=== PATIENT | female | born 1995 | race Two or more races ===

== ENCOUNTER 2016-06-11 10:08 | Outpatient (CLI) | payer MEDICAID | END 2016-06-11 10:09 | disposition home or self-care (01) | DX: E11.9 Type 2 diabetes mellitus without complications (principal) ==

== ENCOUNTER 2016-09-18 11:25 | Outpatient (CLI) | payer MEDICAID | END 2016-09-18 11:26 | disposition home or self-care (01) | DX: E28.2 Polycystic ovarian syndrome (principal) ==

== ENCOUNTER 2016-12-01 07:03 | Day surgery (SDC) | payer MEDICAID ==
[2016-12-01] MEDS ORDERED: ceFAZolin 2 GM/50 ML 50 ML IV ONE (07:21)
[2016-12-01 07:53] LABS: HCG UR QUAL NEGATIVE
[2016-12-01] MEDS ORDERED: LACTATED RINGERS 1,000 ML IV ONE ×3 (08:29→12:20)
[2016-12-01] MEDS ORDERED: BUPIVACAINE 0.5% PF 30 ML VIAL SUBQ ONE ×2 (09:48→10:35)
[2016-12-01] MEDS ORDERED: ROCURONIUM 50 MG/5 ML VIAL IVP ONE (10:00)
[2016-12-01] MEDS ORDERED: ONDANSETRON 4 MG/2 ML VIAL IVP ONE (10:00)
[2016-12-01] MEDS ORDERED: PROPOFOL 200 MG/20 ML VIAL IVP ONE (10:00)
[2016-12-01] MEDS ORDERED: fentaNYL 100 MCG/2 ML VIAL IVP ONE (10:00)
[2016-12-01] MEDS ORDERED: LIDOCAINE-MPF 2% 5 ML VIAL IM ONE (10:00)
[2016-12-01] MEDS ORDERED: SUCCINYLCHOLINE 200 MG/10 ML VIAL IVP ONE (10:00)
[2016-12-01] MEDS ORDERED: DEXAMETHASONE 4 MG/ML VIAL IVP ONE (10:00)
[2016-12-01] MEDS ORDERED: MIDAZOLAM 2 MG/2 ML VIAL IVP ONE (10:00)
[2016-12-01] MEDS ORDERED: KETOROLAC 30 MG/ML VIAL IVP ONE (10:00)
[2016-12-01] MEDS ORDERED: fentaNYL 100 MCG/2 ML VIAL ONE (11:21)
--- NOTE | 2016-12-01 11:54 | OPERATIVE REPORT ---
DATE OF SURGERY: 12/01/2016 00:00:00 TIME: 1100 PREOPERATIVE DIAGNOSIS: Complex pilonidal cyst. POSTOPERATIVE DIAGNOSIS: Complex pilonidal cyst. NAME OF PROCEDURE: Pilonidal cystectomy with mobilization of flaps and multilayer closure. SURGEON: Rigoberto Bhatti MD ANESTHESIA: Dr. Valdez (general endotracheal) plus 30 mL of 0.5% Marcaine. FINDINGS: Multiple draining sinus tracts. COMPLICATIONS: None. ESTIMATED BLOOD LOSS: Less than 10 mL. FLUIDS: 1000 mL of crystalloid. SPECIMEN REMOVED: Pilonidal cyst. DETAILS OF THE PROCEDURE: After informed consent was obtained detailing the risks of infection, bleed ing with all of its risks including transfusion and , the patient was brought to the operative s uite and initially placed supine on the operating room table. The patient received preoperative antib iotics for prophylaxis against surgical infection. The patient had TEDs and Venodynes placed for prop hylaxis against deep venous thrombosis. The patient then had general anesthesia induced by Niko giang, Niko Valdez provided anesthesia care for the entirety of the case. The patient was then carefu lly placed in a prone modified jackknife position, taking care to pad all extremities to make sure th ere were no pressure points. The patient was then prepped and draped in the usual standard manner. At this point, a time-in was done that confirmed the patient's identity via 3 separate identifiers incl uding her date, name, and medical record number. In addition, we confirmed her medications and allergies. We confirmed that we had the personnel and equipment required to perform the procedure. Carmen ram was given the opportunity to mention any concerns, and no concerns were mentioned, and with th e consents of opinion of everyone in the room, the operation was allowed to proceed. Visual examination revealed multiple draining tracts, 3 large ones, that were coming from the midline , but going off midline. An elliptical incision was made biasing it to the patient's right-hand side to incorporate all the sinus tracts. Bovie electrocautery was used to excise all the sinus tracts all the way down to the coccyx. Great care was taken to ensure that I did not leave any of the sinus tra ct behind. The tissues were injected from deep to superficial using 0.5% Marcaine for long-term anest hetic control. Flaps were raised on either side of the coccyx using Bovie electrocautery to allow for multilayer flap closure. This was done first with the gluteus fascia. This was closed using 0 Vicryl sutures in interrupted fashion. Once this was adequately closed, the subcutaneous fat was also broug ht together as a flap and the tape holding her cheeks apart was cut, allowing for this to meet more i n the midline. Once this was completed, the third layer was a subcutaneous layer, which was closed al so using 0 Vicryl suture. At this point, the skin was closed using interrupted and alternating 3-0 ny franny simple sutures and 2-0 nylon mattress sutures. In this manner, the wound was closed with the leas t amount of tension that I could manage. A dressing was applied. The patient was placed on her back a nd extubated and taken to recovery room in good and stable condition having tolerated this procedure well. Please note that when the flaps were closed, due to the nature of the operation and the raising of the flaps, the midline with shifted off to the patient's right, which was my intent. JOB #: [id number] EXT JOB #:[id number]
[2016-12-01] MEDS ORDERED: ONDANSETRON 4 MG/2 ML VIAL ONE (12:18)
[2016-12-01] MEDS ORDERED: oxyCODONE 5 MG TABLET ONE (13:32)
[2016-12-01] MEDS ORDERED: METOCLOPRAMIDE 10 MG/2 ML VIAL ONE (13:38)
[2016-12-01 13:57] VITALS: BP 111/64
== END 2016-12-01 07:04 | disposition home or self-care (01) ==
LOC: SDS 07:03
PROVIDERS: ATTEND Surgery
PROC: 0JB90ZZ Excision of Buttock Subcutaneous Tissue and Fascia, Open Approach (ICD-10-PCS; principal; 2016-12-01 08:45)
DX: L05.91 Pilonidal cyst without abscess (principal); E11.9 Type 2 diabetes mellitus without complications; Z79.84 Long term (current) use of oral hypoglycemic drugs; Z79.4 Long term (current) use of insulin; E66.9 Obesity, unspecified; Z68.37 Body mass index [BMI] 37.0-37.9, adult
CPT/HCPCS: 11772; 81025; A9270; J0690; J7120

== ENCOUNTER 2017-04-23 09:53 | Outpatient (CLI) | payer MEDICAID ==
[2017-04-23 17:51] LABS: BASOPHILS # (AUTO) 0.1 10^3/uL (0.0-0.1); BASOPHILS % (AUTO) 0.8 %; EOSINOPHILS % (AUTO) 0.4 %; HGB - HEMOGLOBIN 12.3 g/dL (12.0-16.0); LYMPHOCYTES # (AUTO) 1.5 10^3/uL (1.5-3.5); LYMPHOCYTES % (AUTO) 22.4 %; MEAN CORPUSCULAR HEMOGLOBIN 26.8 pg (27.0-31.0); MEAN CORPUSCULAR HGB CONC 32.8 g/dL (32.0-36.0); MEAN CORPUSCULAR VOLUME 81.8 fL (81.0-99.0); MEAN PLATELET VOLUME 8.1 fL (7.9-10.8); MONOCYTES # (AUTO) 0.4 10^3/uL (0.0-1.0); MONOCYTES % (AUTO) 5.4 %; NEUTROPHILS # (AUTO) 4.8 10^3/uL (1.5-6.6); PLT - PLATELET COUNT 299 10^3/uL (130-450); RED BLOOD COUNT 4.58 10^6/uL (4.20-5.40); RED CELL DISTRIBUTION WIDTH 16.1 % (12.0-15.0); WHITE BLOOD COUNT 6.8 x10^3/uL (4.8-10.8)
[2017-04-23 18:19] LABS: % IRON SATURATION 9 % (20-50); CHOL/HDL RATIO 2.7 (<4.4); CHOLESTEROL 249 mg/dL; HDL CHOLESTEROL 93 mg/dL; IRON 43 ug/dL (28-170); LDL CHOLESTEROL,CALCULATED 137 mg/dL; LDL/HDL RATIO 1.5 (<4.4); TOTAL IRON BINDING CAPACITY 470 ug/dL (250-450); TRANSFERRIN 336 mg/dL (192-382); VLDL CHOLESTEROL 19 mg/dL
[2017-04-23 18:46] LABS: HB2 TOTAL 13.2 g/dL; HEMOGLOBIN A1C 0.73 g/dL; HEMOGLOBIN A1C % 7.2 % (4.6-6.2)
== END 2017-04-23 09:54 | disposition home or self-care (01) ==
LOC: LAB.F 09:53
PROVIDERS: ATTEND Nurse Practitioner Family
DX: E11.9 Type 2 diabetes mellitus without complications (principal); M79.606 Pain in leg, unspecified; E28.2 Polycystic ovarian syndrome
CPT/HCPCS: 36415; 80061; 81599; 82043; 83036; 83540; 83721; 84402; 84403; 84443; 84466; 85025

== ENCOUNTER 2017-05-30 23:07 | Emergency (ER) | payer MEDICAID ==
[2017-05-30 23:14] VITALS: BP 142/78
--- NOTE | 2017-05-30 23:18 | ED Physician Documentation ---
PD HPI HEENT FB - Chief complaint Chief Complaint: Heent - History obtained from History obtained from: Patient - History of Present Illness Timing - onset: How many minutes ago (30) Location: Right ear Similar symptoms before: Has not had sx before Recently seen: Not recently seen - Additional information Additional information: Patient is a 21 year old female presenting to the emergency department after getting a q-tip stuck in her ear. Patient states she was worried that it would mess with her equilibrium and that she would get headaches so she came to the emergency department. Review of Systems Constitutional: reports: Reviewed and negative Eyes: reports: Reviewed and negative Ears: reports: Foreign body Nose: reports: Reviewed and negative Throat: reports: Reviewed and negative Cardiac: reports: Reviewed and negative Skin: denies: Rash, Lesions Neurologic: denies: Headache, LOC PD PAST MEDICAL HISTORY - Past Medical History Cardiovascular: None Respiratory: None Endocrine/Autoimmune: Type 2 diabetes GI: GERD, Chronic constipation : Nocturia, Frequency HEENT: None Psych: Depression, Anxiety, Panic attacks Musculoskeletal: None Derm: Other - Past Surgical History Past Surgical History: No - Present Medications Home Medications: Ambulatory Orders Medication Instructions Recorded Confirmed Insulin Glargine [Lantus] 24 unit SUBQ QPM 01/11/13 04/27/17 Insulin Lispro [Humalog] 35 unit SQ TIDWM 01/11/13 04/27/17 Ibuprofen [Advil] 600 mg PO DAILY 11/19/16 04/27/17 Norelgestromin/Ethin.estradiol 1 patch TOP ONCE 11/19/16 04/27/17 [Xulane Patch] Control Pills 1 tab PO DAILY 04/27/17 - Allergies Allergies/Adverse Reactions: Allergies Allergy/AdvReac Type Severity Reaction Status Date / Time trospium Allergy Nausea Verified 05/30/17 23:12 acetaminophen [From Tylenol] AdvReac Nausea Verified 05/30/17 23:12 metformin AdvReac Nausea Verified 05/30/17 23:12 - Social History Does the pt smoke?: No Smoking Status: Never smoker Does the pt drink ETOH?: No Does the pt have substance abuse?: No - Immunizations Immunizations are current?: Yes - POLST Patient has POLST: No PD ED PE NORMAL - Vitals Vital signs reviewed: Yes - General General: Alert and oriented X 3 - HEENT HEENT: Atraumatic, PERRL - Cardiac Cardiac: RRR - Respiratory Respiratory: No respiratory distress - Abdomen Abdomen: Soft - Derm Derm: Normal color - Neuro Neuro: Alert and oriented X 3, No motor deficit, Normal speech PD ED PE EXPANDED - HEENT HEENT: Other (cotton in right external canal) Results - Vitals Vitals: Vital Signs - 24 hr 05/30/17 05/30/17 23:10 23:14 Temperature 36.6 C Heart Rate 104 H Respiratory 20 Rate Blood Pressure 142/78 H O2 Saturation 96 Oxygen O2 Source Room air Procedures - FB removal FB location: Ear Removal method: Other (tweezers) FB removal aftercare: No complications, Patient tolerated well, Removed successfully PD MEDICAL DECISION MAKING - ED course Complexity details: reviewed old records, reviewed results, re-evaluated patient , considered differential, d/w patient, d/w family ED course: Patient was seen and examined at bedside. Patient's fb was removed. Patient had no underlying signs of trauma. Patient was stable for discharge with outpatient follow up. Departure - Departure Disposition: 01 Home, Self Care Clinical Impression: Foreign body in ear Condition: Good Instructions: ED Foreign Body Ear Canal Follow-Up: Kayleigh Esqueda, [employer] [Primary Care Provider] - As Needed Comments: The foreign body has been removed. there is no other internal damage. You should follow up with your doctor as needed. You should refrain from using cutips to clean your ears.
== END 2017-05-30 23:21 | disposition home or self-care (01) ==
LOC: ED 23:07
DX: T16.1XXA Foreign body in right ear, initial encounter (principal); X58.XXXA Exposure to other specified factors, initial encounter; Y92.019 Unspecified place in single-family (private) house as the place of occurrence of the external cause; E11.9 Type 2 diabetes mellitus without complications; Z79.4 Long term (current) use of insulin; K21.9 Gastro-esophageal reflux disease without esophagitis
CPT/HCPCS: 69200; 99282; 99283

== ENCOUNTER 2017-06-03 14:27 | Outpatient (CLI) | payer MEDICAID | END 2017-06-03 14:28 | disposition home or self-care (01) | LOC: LAB.R 14:27 | PROVIDERS: ATTEND Registered Nurse | DX: B37.3 Candidiasis of vulva and vagina (principal) | CPT/HCPCS: 87491; 87591 ==

== ENCOUNTER 2017-10-15 09:59 | Outpatient (CLI) | payer MEDICAID ==
[2017-10-15 18:19] LABS: FREE T4 (FREE THYROXINE) 0.63 ng/dL (0.58-1.64); T4 (THYROXINE) 7.5 ug/dL (6.09-12.23); THYROID STIMULATING HORMONE 0.84 uIU/mL (0.34-5.60)
[2017-10-15 18:24] LABS: HB2 TOTAL 12.5 g/dL; HEMOGLOBIN A1C 0.72 g/dL; HEMOGLOBIN A1C % 7.4 % (4.6-6.2)
== END 2017-10-15 10:00 | disposition home or self-care (01) ==
LOC: LAB.F 09:59
PROVIDERS: ATTEND Registered Nurse
DX: L74.9 Eccrine sweat disorder, unspecified (principal)
CPT/HCPCS: 36415; 83036; 84436; 84439; 84443

== ENCOUNTER 2018-04-15 12:11 | Outpatient (CLI) | payer MEDICAID ==
[2018-04-15 19:29] LABS: BASOPHILS % (AUTO) 0.5 %; EOSINOPHILS # (AUTO) 0.1 10^3/uL (0.0-0.7); HGB - HEMOGLOBIN 11.8 g/dL (12.0-16.0); LYMPHOCYTES # (AUTO) 1.5 10^3/uL (1.5-3.5); LYMPHOCYTES % (AUTO) 20.5 %; MEAN CORPUSCULAR HEMOGLOBIN 25.3 pg (27.0-31.0); MEAN CORPUSCULAR HGB CONC 31.8 g/dL (32.0-36.0); MEAN CORPUSCULAR VOLUME 79.5 fL (81.0-99.0); MEAN PLATELET VOLUME 7.9 fL (7.9-10.8); MONOCYTES # (AUTO) 0.6 10^3/uL (0.0-1.0); MONOCYTES % (AUTO) 7.4 %; NEUTROPHILS # (AUTO) 5.3 10^3/uL (1.5-6.6); NEUTROPHILS % (AUTO) 70.6 %; PLT - PLATELET COUNT 345 10^3/uL (130-450); RED BLOOD COUNT 4.65 10^6/uL (4.20-5.40); RED CELL DISTRIBUTION WIDTH 16.9 % (12.0-15.0); WHITE BLOOD COUNT 7.5 x10^3/uL (4.8-10.8)
[2018-04-15 19:33] LABS: HEMOGLOBIN A1C 0.66 g/dL; HEMOGLOBIN A1C % 7.2 % (4.6-6.2)
[2018-04-15 19:37] LABS: CHOL/HDL RATIO 2.9 (<4.4); CHOLESTEROL 218 mg/dL; HDL CHOLESTEROL 76 mg/dL; LDL CHOLESTEROL,CALCULATED 123 mg/dL; LDL/HDL RATIO 1.6 (<4.4); VLDL CHOLESTEROL 19 mg/dL
== END 2018-04-15 23:59 | disposition home or self-care (01) ==
LOC: LAB.N 12:11
PROVIDERS: ATTEND Nurse Practitioner
DX: E11.9 Type 2 diabetes mellitus without complications (principal)
CPT/HCPCS: 36415; 80061; 82043; 83036; 83721; 84443; 85025

== ENCOUNTER 2018-04-16 11:52 | Outpatient (CLI) | payer MEDICAID ==
[2018-04-16 19:35] LABS: ALBUMIN 4.2 g/dL (3.2-5.5); ALBUMIN/GLOBULIN RATIO 1.2 (1.0-2.2); BILIRUBIN,TOTAL 0.7 mg/dL (0.2-1.0); CALCIUM 9.2 mg/dL (8.5-10.3); CREATININE 0.8 mg/dL (0.4-1.0); TOTAL PROTEIN 7.7 g/dL (6.7-8.2)
[2018-04-16 19:40] LABS: FERRITIN 26.4 ng/mL (11.0-306.8)
[2018-04-16 19:44] LABS: FOLATE 16.68 ng/mL (5.90 - >24.8)
== END 2018-04-16 23:59 | disposition home or self-care (01) ==
LOC: LAB.N 11:52
PROVIDERS: ATTEND Nurse Practitioner
DX: E11.9 Type 2 diabetes mellitus without complications (principal); E55.9 Vitamin D deficiency, unspecified; D50.9 Iron deficiency anemia, unspecified
CPT/HCPCS: 36415; 80053; 82306; 82607; 82728; 82746; 83540; 84466

== ENCOUNTER 2018-06-30 08:00 | Outpatient (CLI) | payer MEDICAID ==
[2018-06-30 19:17] LABS: BASOPHILS % (AUTO) 0.4 %; EOSINOPHILS # (AUTO) 0.1 10^3/uL (0.0-0.7); EOSINOPHILS % (AUTO) 0.7 %; HGB - HEMOGLOBIN 11.3 g/dL (12.0-16.0); LYMPHOCYTES # (AUTO) 1.6 10^3/uL (1.5-3.5); LYMPHOCYTES % (AUTO) 20.1 %; MEAN CORPUSCULAR HEMOGLOBIN 25.1 pg (27.0-31.0); MEAN CORPUSCULAR HGB CONC 31.9 g/dL (32.0-36.0); MEAN CORPUSCULAR VOLUME 78.7 fL (81.0-99.0); MONOCYTES # (AUTO) 0.7 10^3/uL (0.0-1.0); MONOCYTES % (AUTO) 8.3 %; NEUTROPHILS # (AUTO) 5.6 10^3/uL (1.5-6.6); NEUTROPHILS % (AUTO) 70.5 %; PLT - PLATELET COUNT 288 10^3/uL (130-450); RED BLOOD COUNT 4.51 10^6/uL (4.20-5.40); RED CELL DISTRIBUTION WIDTH 16.7 % (12.0-15.0); WHITE BLOOD COUNT 7.9 x10^3/uL (4.8-10.8)
[2018-06-30 19:28] LABS: ALBUMIN 4.1 g/dL (3.2-5.5); ALBUMIN/GLOBULIN RATIO 1.2 (1.0-2.2); BILIRUBIN,TOTAL 0.6 mg/dL (0.2-1.0); CREATININE 0.6 mg/dL (0.4-1.0); TOTAL PROTEIN 7.6 g/dL (6.7-8.2)
[2018-06-30 19:46] LABS: HB2 TOTAL 11.9 g/dL; HEMOGLOBIN A1C 0.62 g/dL; HEMOGLOBIN A1C % 6.9 % (4.6-6.2)
== END 2018-06-30 23:59 | disposition home or self-care (01) ==
LOC: LAB.N 08:00
PROVIDERS: ATTEND Family Medicine
DX: E11.9 Type 2 diabetes mellitus without complications (principal); R10.9 Unspecified abdominal pain
CPT/HCPCS: 36415; 80053; 82150; 83036; 83690; 85025

== ENCOUNTER 2018-07-14 21:15 | Outpatient (CLI) | payer MEDICAID ==
--- NOTE | 2018-07-15 01:10 | Ultrasound Report ---
Reason: ABDOMINAL PAIN Procedure Date: 07/14/2018 Accession Number: [id number] / [id number] Procedure: US - Abdomen Limited CPT Code: FULL RESULT: EXAM: ABDOMEN ULTRASOUND LIMITED, RUQ EXAM DATE: 07/14/2018 09:50 PM. CLINICAL HISTORY: ABDOMINAL PAIN. COMPARISON: None. TECHNIQUE: Real-time scanning was performed with static images obtained. FINDINGS: Liver: Normal in size and echotexture. 15.8 cm. Main portal vein flow: Hepatopetal. Gallbladder: Normal. No stones, wall thickening, or sonographic Mooney's sign. Biliary System: CBD measures 2.4 mm. No intrahepatic or extrahepatic ductal dilatation. Other: Right kidney measures 9.7 cm. No hydronephrosis. IMPRESSION: Normal. No cholelithiasis or cholecystitis. [facility]
== END 2018-07-14 21:16 | disposition home or self-care (01) ==
LOC: DI 21:15
PROVIDERS: ATTEND Family Medicine
DX: R10.9 Unspecified abdominal pain (principal)
CPT/HCPCS: 76705

== ENCOUNTER 2018-12-09 09:08 | Outpatient (CLI) | payer MEDICAID ==
[2018-12-09 13:54] LABS: CALCIUM 8.9 mg/dL (8.5-10.3); CREATININE 0.7 mg/dL (0.4-1.0)
[2018-12-09 14:02] LABS: CREATININE,URINE 170.9 mg/dL; MICROALBUM/CREATININE RATIO,UR 3.5 ug/mg (<30.0); MICROALBUMIN,URINE 0.6 mg/dL (0-300.0)
[2018-12-09 14:11] LABS: HB2 TOTAL 11.4 g/dL; HEMOGLOBIN A1C 0.66 g/dL; HEMOGLOBIN A1C % 7.4 % (4.6-6.2)
== END 2018-12-09 23:59 ==
LOC: LAB.N 09:08
PROVIDERS: ATTEND Family Medicine
DX: E11.9 Type 2 diabetes mellitus without complications (principal)
CPT/HCPCS: 36415; 80048; 82043; 82570; 83036

== ENCOUNTER 2019-01-26 13:57 | Outpatient (CLI) | payer MEDICAID ==
[2019-01-26 18:29] LABS: RHEUMATOID FACTOR NEGATIVE (Negative)
[2019-01-26 18:52] LABS: HGB - HEMOGLOBIN 10.3 g/dL (12.0-16.0); MEAN CORPUSCULAR HEMOGLOBIN 23.7 pg (27.0-31.0); MEAN PLATELET VOLUME 9.3 fL (7.9-10.8); RED BLOOD COUNT 4.34 10^6/uL (4.20-5.40); RED CELL DISTRIBUTION WIDTH 15.9 % (12.0-15.0); WHITE BLOOD COUNT 12.2 x10^3/uL (4.8-10.8)
[2019-01-26 19:31] LABS: URIC ACID 4.3 mg/dL (2.6-7.2)
[2019-02-01 09:26] LABS: ANA SCREEN NEGATIVE (NEGATIVE)
== END 2019-01-26 23:59 | disposition home or self-care (01) ==
LOC: LAB.N 13:57
PROVIDERS: ATTEND Family Medicine
DX: M19.90 Unspecified osteoarthritis, unspecified site (principal)
CPT/HCPCS: 36415; 84550; 85027; 85651; 86038; 86140; 86200; 86430

== ENCOUNTER 2019-09-05 08:00 | Outpatient (CLI) | payer MEDICAID ==
[2019-09-06 18:16] LABS: CANDIDA KRUSEI DNA NEGATIVE (NEGATIVE)
[2019-09-06 18:17] LABS: CANDIDA GROUP DNA NEGATIVE (NEGATIVE); TRICHOMONAS VAGINALIS DNA NEGATIVE (NEGATIVE)
== END 2019-09-05 23:59 | disposition home or self-care (01) ==
LOC: LAB.R 08:00
PROVIDERS: ATTEND Obstetrics & Gynecology
DX: L73.2 Hidradenitis suppurativa (principal)
CPT/HCPCS: 87070; 87077; 87205; 87661; 87801

== ENCOUNTER 2019-12-13 07:00 | Outpatient (CLI) | payer MEDICAID ==
[2019-12-14 18:58] LABS: CANDIDA GROUP DNA NEGATIVE (NEGATIVE); CANDIDA KRUSEI DNA NEGATIVE (NEGATIVE); TRICHOMONAS VAGINALIS DNA NEGATIVE (NEGATIVE)
== END 2019-12-13 23:59 | disposition home or self-care (01) ==
LOC: LAB.R 07:00
PROVIDERS: ATTEND Obstetrics & Gynecology
DX: L73.2 Hidradenitis suppurativa (principal); N76.0 Acute vaginitis
CPT/HCPCS: 87070; 87077; 87181; 87205; 87661; 87801

== ENCOUNTER 2020-08-24 12:25 | Outpatient (CLI) | payer MEDICAID ==
[2020-08-24 13:12] LABS: THYROID STIMULATING HORMONE 1.65 uIU/mL (0.34-5.60)
[2020-08-24 13:31] LABS: CHOL/HDL RATIO 2.5 (<4.4); CHOLESTEROL 188 mg/dL; HDL CHOLESTEROL 75 mg/dL; LDL CHOLESTEROL,CALCULATED 100 mg/dL; LDL/HDL RATIO 1.3 (<4.4); TRIGLYCERIDES 67 mg/dL; VLDL CHOLESTEROL 13 mg/dL
[2020-08-24 13:49] LABS: ESTIMATED AVERAGE GLUCOSE 166 mg/dL (70-100); HEMOGLOBIN A1c% 7.4 % (4.27-6.07)
[2020-08-24 13:51] LABS: CREATININE,URINE 183.7 mg/dL; PROTEIN/CREATININE RATIO,URINE 0.1 (<=0.2)
== END 2020-08-24 12:26 | disposition home or self-care (01) ==
LOC: LAB 12:25
PROVIDERS: ATTEND Obstetrics & Gynecology
DX: E11.9 Type 2 diabetes mellitus without complications (principal)
CPT/HCPCS: 36415; 80061; 82570; 83036; 83721; 84156; 84403; 84443